=== PATIENT | female | born 1930 | race Hispanic/Latino ===

== ENCOUNTER → 2018-06-19 | Outpatient (CLI) | payer OTHER ==
[~2018-06-19] MED LIST: ASPI-555 PO; BIOT1CAP3 PO; CALC-724 PO; CRAN200C PO; CYCL30DR OP; DONE10TA43 PO; LOSA100T20 PO; MULT-1192 PO; OLOP2.5D OU; OXYB5TAB10 PO; POLY17PO3 PO; RANI300C PO; SIMV20TA6 PO; SITA100T12 PO; TRAV2.5D OU; TURM500C9 PO; VITA1CAP85 PO
== END | disposition home or self-care (01) ==
LOC: RAH 10:40
PROVIDERS: ATTEND Internal Medicine
DX: K57.90 Diverticulosis of intestine, part unspecified, without perforation or abscess without bleeding (principal); N32.89 Other specified disorders of bladder; M47.895 Other spondylosis, thoracolumbar region; I25.10 Atherosclerotic heart disease of native coronary artery without angina pectoris
CPT/HCPCS: 74176

== ENCOUNTER 2019-04-25 19:13 | Inpatient (IN) | payer OTHER, MEDICARE ==
[~2019-04-25] VITALS: Ht 157.5 cm; Wt 43.5 kg
[~2019-04-25 19:13] MED LIST changes: -LOSA100T20 PO; +LOSA100T58 PO; +POLY17PO29 PO; -POLY17PO3 PO
[2019-04-25] MEDS ORDERED: ONDANSETRON HCL 4 MG/2 ML VIAL ONE (19:28)
[2019-04-25 19:44] LABS: BASOPHILS % (AUTO) 0.3 % (0.0-5.0); HEMATOCRIT 42.2 % (36-48); LYMPHOCYTES % (AUTO) 11.4 % (21.0-51.0); MEAN CORPUSCULAR HEMOGLOBIN 30.4 pg (27.0-33.0); MEAN CORPUSCULAR HGB CONC 33.5 g/dL (32.0-36.0); MEAN CORPUSCULAR VOLUME 90.8 fL (79-99); MONOCYTES % (AUTO) 3.4 % (3.0-13.0); NEUTROPHILS % (AUTO) 84.9 % (40.0-77.0); PLATELET COUNT (AUTO) 213 K/uL (130-400); RED BLOOD CELL COUNT(AUTO) 4.65 MIL/uL (4.00-5.50); RED CELL DISTRIBUTION WIDTH 14.2 % (11.0-15.5); WHITE BLOOD COUNT (AUTO) 9.4 K/uL (4.8-10.8)
[2019-04-25] MEDS ORDERED: SODIUM CHLORIDE 0.9% 1000ML 1,000 ML IV ONE ×2 (19:56→23:56)
[2019-04-25 20:00] LABS: CREATININE 0.7 mg/dL (0.5-1.5)
[2019-04-25 20:01] LABS: INR 0.99 (0.85-1.15); PARTIAL THROMBOPLASTIN TIME 27.1 SEC (26.3-35.5); PROTHROMBIN TIME 10.4 SEC (9.6-11.6)
[2019-04-25 20:04] LABS: ALBUMIN 4.4 g/dL (3.5-5.0); BILIRUBIN,TOTAL 0.6 mg/dL (0.2-1.0); TOTAL PROTEIN, SERUM 7.8 g/dL (6.0-8.3)
[2019-04-25 20:08] LABS: BILIRUBIN,URINE Negative (NEGATIVE); COLOR,URINE Yellow (YELLOW); GLUCOSE, URINE (UA) TRACE mg/dL (NEGATIVE); KETONES,URINE 40 mg/dL (NEGATIVE); LEUKOCYTE ESTERASE ,URINE Trace (NEGATIVE); NITRATE,URINE Negative (NEGATIVE); OCCULT BLOOD,URINE Nonhemolyzed Trace (NEGATIVE); PROTEIN,URINE POS 1+ mg/dL (NEGATIVE)
[2019-04-25 20:15] LABS: APPEARANCE,URINE CLOUDY (CLEAR)
[2019-04-25 20:19] LABS: BACTERIA,URINE Moderate /HPF (None Seen); SQUAMOUS EPITHELIAL CELL,UR Rare /HPF (0-2)
[2019-04-25 20:30] LABS: B-TYPE NATRIURETIC PEPTIDE 134 pg/mL (0-100)
[2019-04-25] MEDS ORDERED: NITROGLYCERIN 1GM/1 INCH PACKET TD ONE (21:25)
[2019-04-25] MEDS ORDERED: CEFTRIAXONE SODIUM 1 GM ONE (21:28)
[2019-04-25 22:38] VITALS: BP 142/67
[2019-04-25] MEDS ORDERED: LOSA25TA41 PO (23:01)
[2019-04-25] MEDS ORDERED: LORA10CA9 PO (23:01)
[2019-04-25] MEDS ORDERED: DONE5TAB33 PO (23:01)
[2019-04-26 00:53] LABS: TROPONIN I 3.95 ng/mL (0.00-0.06)
--- NOTE | 2019-04-26 01:02 | NUR ---
PAGED Pagegurinder Jenkins thru answering service re Troponin level 3.95.
--- NOTE | 2019-04-26 03:16 | NUR ---
CALL BACK Dr LAMBERT called back,informed of trponin level,see new order. Addendum: 04/26/19 at 0334 by SELINA ERICKSON RN RN Pt denies chesp pain.
[2019-04-26 03:57] VITALS: BP 130/65
[2019-04-26] MEDS ORDERED: NITROGLYCERIN 1GM/1 INCH PACKET TD ONE (04:32)
[2019-04-26 05:26] LABS: TROPONIN I 4.89 ng/mL (0.00-0.06)
[2019-04-26] MEDS: NITROGLYCERIN 1GM/1 INCH PACKET TD SCH ×4 (06:00→23:43)
[2019-04-26] MEDS ORDERED: GLUCAGON 1MG KIT 1 MG ML IM PRN (06:45)
[2019-04-26] MEDS ORDERED: SODIUM CHLORIDE 0.9% 1000ML 1,000 ML IV SCH (06:45)
[2019-04-26] MEDS ORDERED: DEXTROSE 50%-WATER 50 ML DISP.SYRIN IV PRN (06:45)
[2019-04-26] MEDS: INSULIN R PO SS1 SQ SCH ×4 (06:53→21:00)
[2019-04-26] MEDS ORDERED: ONDANSETRON HCL 4 MG/2 ML VIAL IVP PRN (07:00)
[2019-04-26] MEDS ORDERED: ACETAMINOPHEN 325 MG TAB PO PRN (07:00)
[2019-04-26 08:00] VITALS: BP 134/57
--- NOTE | 2019-04-26 08:05 | NUR ---
paged dr diaz through answering service at this time for the consult. will wait for the callback.
--- NOTE | 2019-04-26 08:07 | NUR ---
spoke to dr. diaz for the consult. no orders given. verbalized that he will be seeing the patient today.
[2019-04-26] MEDS ORDERED: ASPIRIN 81 MG EC TAB PO SCH (09:00)
[2019-04-26] MEDS ORDERED: REGADENOSON 0.4 MG/5 ML PF SYG IVP SCH (09:00)
[2019-04-26 12:09] VITALS: BP 145/58
[2019-04-26] MEDS ORDERED: POTASSIUM CHLORIDE 10% ELIXIR 20 MEQ/15 ML UDCUP PO PRN (12:15)
[2019-04-26] MEDS ORDERED: POTASSIUM CHLORIDE 20MEQ/100ML 100 ML IV PRN ×2 (12:15)
[2019-04-26] MEDS ORDERED: POLYETHYLENE GLYCOL 3350 17 GM POWD.PACK PO SCH (12:15)
[2019-04-26] MEDS ORDERED: LIDOCAINE HCL-MPF 1% 2ML VIAL IJ PRN ×2 (12:15)
--- NOTE | 2019-04-26 13:26 | NUR ---
DCP CM met with pt discussed dc plans. Pt is semi-independent prior to admission, lives at home alone, daughter and friends lives close by. Has a provider and walker. Denies any other equipments/services. Pt feels safe to go back home, daughter able to assist with transportation and needs as necessary. DC plan to home once stable. CM to cont to follow up. Addendum: 04/26/19 at 1328 by PAVEL SALDAÑA LVN CM Amended: Links added.
--- NOTE | 2019-04-26 13:57 | NUR ---
Nutrition Intervention: Nutrition consult due to trigger. Pt. reports 8#(8% of UBW) wt. loss in 1 month due to decreased appetite. Pt. NPO. Spoke with pt. regarding snacks between meals and nut. supplementation with Ensure when diet advanced but pt. declined. Pt. reports dislikes nutritional supplements. Labs reviewed(Alb 4.4). Recommendations: 1) When medically feasible, rec. 60gm CCD diet. 2) Continue to monitor pt's nutritional status and diet advancement. 3) Consult RD as nutrition concerns arise. Addendum: 04/26/19 at [address] Amended: Links added.
[2019-04-26] MEDS ORDERED: SODIUM CHLORIDE 0.9% 500ML 500 ML IV SCH (14:37)
[2019-04-26] MEDS: CEPHALEXIN 500 MG CAPSULE PO SCH ×2 (15:17→21:04)
[2019-04-26 15:41] LABS: INR 1.02 (0.85-1.15); PARTIAL THROMBOPLASTIN TIME 26.4 SEC (26.3-35.5); PROTHROMBIN TIME 10.7 SEC (9.6-11.6)
[2019-04-26] MEDS ORDERED: CLOPIDOGREL BISULFATE 300 MG TAB PO SCH ×2 (15:45→18:40)
[2019-04-26 16:14] VITALS: BP 140/55
[2019-04-26 19:59] VITALS: BP 130/65
[2019-04-26] MEDS ORDERED: DIPHENHYDRAMINE HCL 25 MG CAPSULE PO SCH (20:45)
[2019-04-26] MEDS ORDERED: PREDNISONE 10 MG TABLET PO SCH (21:00)
[2019-04-26] MEDS: METOPROLOL TARTRATE 25 MG TAB PO SCH (21:03)
[2019-04-26] MEDS: SIMVASTATIN 10 MG TABLET PO SCH (21:04)
[2019-04-26 23:51] VITALS: BP 126/50
[2019-04-27] VITALS (15 sets, daily range): BP systolic 120–154; BP diastolic 49–70
[2019-04-27] MEDS: INSULIN R PO SS1 SQ SCH ×4 (05:48→20:45)
[2019-04-27] MEDS ORDERED: DIPHENHYDRAMINE HCL 25 MG CAPSULE PO SCH (06:00)
[2019-04-27 06:11] LABS: BASOPHILS % (AUTO) 0.3 % (0.0-5.0); HEMATOCRIT 33.7 % (36-48); LYMPHOCYTES % (AUTO) 14.3 % (21.0-51.0); MEAN CORPUSCULAR HEMOGLOBIN 30.6 pg (27.0-33.0); MEAN CORPUSCULAR HGB CONC 33.8 g/dL (32.0-36.0); MEAN CORPUSCULAR VOLUME 90.4 fL (79-99); MONOCYTES % (AUTO) 4.5 % (3.0-13.0); NEUTROPHILS % (AUTO) 80.9 % (40.0-77.0); PLATELET COUNT (AUTO) 188 K/uL (130-400); RED BLOOD CELL COUNT(AUTO) 3.72 MIL/uL (4.00-5.50); RED CELL DISTRIBUTION WIDTH 14.7 % (11.0-15.5); WHITE BLOOD COUNT (AUTO) 6.3 K/uL (4.8-10.8)
[2019-04-27 06:20] LABS: CREATININE 0.4 mg/dL (0.5-1.5); POTASSIUM 3.7 mmol/L (3.5-5.1)
[2019-04-27] MEDS: NITROGLYCERIN 1GM/1 INCH PACKET TD SCH ×3 (06:29→18:26)
[2019-04-27] MEDS ORDERED: HYDROCORTISONE SOD SUCCINATE 100 MG/2 ML VIAL IV SCH (06:30)
--- NOTE | 2019-04-27 07:00 | NUR ---
ALERT AND ORIENTED WITH NO ACUTE RESPIRATORY DISTRESS ON ROOM AIR, PATIENT DENIES PAIN WHEN ASKED. PLAN OF CARE WAS MADE KNOWN TO THE PATIENT AND HER DAUGHTER AT THE BEDSIDE. PENDING HEART CATHETERIZATION.
--- NOTE | 2019-04-27 07:08 | NUR ---
DR LARSON CAME IN TO EXPLAIN TO THE PATIENT THE DELAY FOR PROCEDURE THIS MORNING. HE SAID THAT AM MEDS CAN BE GIVEN AND HE WILL NOTIFY WHEN THE PROCEDURE WILL TAKE PLACE.
[2019-04-27] MEDS ORDERED: IOHEXOL 350 MG/ML 100ML INFUS..BTL IV ONE (08:28)
[2019-04-27] MEDS ORDERED: LIDOCAINE HCL 2% 20ML ONE (08:28)
[2019-04-27] MEDS ORDERED: HEPARIN SODIUM 1000UNIT/ML 10ML VIAL ONE (08:28)
[2019-04-27] MEDS ORDERED: IOHEXOL-350 50ML VIAL IV ONE (08:28)
--- NOTE | 2019-04-27 08:45 | NUR ---
TAKEN TO RN PLASTIC SURGERY VIA BED AND IN STABLE CONDITION.
[2019-04-27] MEDS ORDERED: NITROGLYCERIN 5 MG/ML 10 ML VIAL IV ONE (08:56)
[2019-04-27] MEDS ORDERED: ASPIRIN 325MG EC TAB 325 MG TABLET.DR PO SCH (09:00)
--- NOTE | 2019-04-27 09:50 | NUR ---
RETURNED FROM [employer] ALERT AND AWAKE, DENIES PAIN. RIGHT GROIN SITE IS SOFT WITH NOT SIGNS OF BLEEDING OR HEMATOMA PRESENT. PEDAL PULSES ARE STABLE. PATIENT WAS INSTRUCTED ON BEDREST FOR 3 HOURS TO KEEP THE AFFECTED LEG STRAIGHT WITH HOB DOWN AND SHE VOICED UNDERSTANDING. WILL CONTINUE TO MONITOR.
[2019-04-27] MEDS: FAMOTIDINE 20MG TAB 20 MG TAB PO SCH (12:28)
[2019-04-27] MEDS: CEPHALEXIN 500 MG CAPSULE PO SCH ×3 (12:30→20:35)
[2019-04-27] MEDS: METOPROLOL TARTRATE 25 MG TAB PO SCH ×2 (12:31→20:35)
[2019-04-27] MEDS: CLOPIDOGREL BISULFATE 75 MG TAB PO SCH (12:31)
[2019-04-27] MEDS: Losartan Potassium 12.5 MG PO SCH ×2 (12:37→20:36)
--- NOTE | 2019-04-27 13:20 | NUR ---
PATIENT WAS ASSISTED IN A SITTING POSITION FOR LUNCH AND TOLERATED THE ACTIVITY WITHOUT COMPLICATION TO THE RIGHT GROIN. NO BLEEDING OR HEMATOMA OBSERVED AND PEDAL PULSES ARE STABLE.
--- NOTE | 2019-04-27 16:00 | NUR ---
[facility] SD COP[facility]AND CAME TO SEE THE PATIENT. SHE SAID THE PATIENT REFUSED SURGERY FOR NOW AND WANTS MEDICAL MANAGEMENT.
--- NOTE | 2019-04-27 17:22 | NUR ---
[facility] consult Patient assessed as ordered. Small superficial pressure area noted to coccyx area. [facility] recommendations submitted. Addendum: 04/27/19 at 1723 by TERA MCKNIGHT RN/ Amended: Links added.
[2019-04-27] MEDS ORDERED: CEPH500C2 PO (19:44)
[2019-04-27] MEDS ORDERED: ROSU5TAB12 PO (19:44)
[2019-04-27] MEDS: SIMVASTATIN 10 MG TABLET PO SCH (20:35)
[2019-04-27] MEDS ORDERED: TRAVOPROST OU SCH (21:00)
[2019-04-28 03:53] VITALS: BP 111/53
[2019-04-28 05:06] LABS: BASOPHILS % (AUTO) 0.6 % (0.0-5.0); HEMATOCRIT 31.2 % (36-48); LYMPHOCYTES % (AUTO) 30.1 % (21.0-51.0); MEAN CORPUSCULAR HEMOGLOBIN 30.9 pg (27.0-33.0); MEAN CORPUSCULAR HGB CONC 33.9 g/dL (32.0-36.0); MEAN CORPUSCULAR VOLUME 91.2 fL (79-99); MONOCYTES % (AUTO) 10.2 % (3.0-13.0); NEUTROPHILS % (AUTO) 58.1 % (40.0-77.0); NUCLEATED RED BLOOD CELLS 0.1 % (0.0-0.19); PLATELET COUNT (AUTO) 171 K/uL (130-400); RED BLOOD CELL COUNT(AUTO) 3.43 MIL/uL (4.00-5.50); RED CELL DISTRIBUTION WIDTH 14.1 % (11.0-15.5); WHITE BLOOD COUNT (AUTO) 6.8 K/uL (4.8-10.8)
[2019-04-28 05:15] LABS: CREATININE 0.6 mg/dL (0.5-1.5); POTASSIUM 3.2 mmol/L (3.5-5.1)
[2019-04-28] MEDS: INSULIN R PO SS1 SQ SCH (06:11)
[2019-04-28] MEDS ORDERED: CLOP75TA14 PO (06:40)
[2019-04-28] MEDS ORDERED: METO25 PO (06:40)
[2019-04-28] MEDS ORDERED: Isosorbide Mono 30MG Tab Sr PO (06:40)
--- NOTE | 2019-04-28 06:55 | NUR ---
RECEIVED ALERT AND STABLE WITH NO ACUTE DISTRESS ON ROOM AIR, RIGHT GROIN SITE IS SOFT WITH NO HEMATOMA AND PEDAL PULSES ARE STRONG. PATIENT WAS ENCOURAGED TO AMBULATE PRIOR TO DISCHARGE AND DAUGHTER AT THE BEDSIDE SAID THAT SHE WILL WALK HER AFTER BREAKFAST. POTASSIUM COVERAGE WILL BE PROVIDED.
[2019-04-28 07:30] VITALS: BP 121/47
[2019-04-28] MEDS ORDERED: ASPIRIN 81 MG EC TAB PO SCH (09:00)
[2019-04-28] MEDS: Losartan Potassium 12.5 MG PO SCH (09:00)
[2019-04-28] MEDS ORDERED: ISOSORBIDE MONO 30MG TAB SR PO SCH (09:00)
[2019-04-28] MEDS ORDERED: MAGNESIUM HYDROXIDE 30 ML/UDCUP PO SCH (09:15)
[2019-04-28] MEDS: CEPHALEXIN 500 MG CAPSULE PO SCH (09:22)
[2019-04-28] MEDS: CLOPIDOGREL BISULFATE 75 MG TAB PO SCH (09:22)
[2019-04-28] MEDS: METOPROLOL TARTRATE 25 MG TAB PO SCH (09:23)
[2019-04-28] MEDS: FAMOTIDINE 20MG TAB 20 MG TAB PO SCH (09:23)
[2019-04-28] MEDS: POTASSIUM CHLORIDE 20 MEQ ERTAB PO PRN ×2 (09:25→11:08)
[2019-04-28] MEDS ORDERED: NITR0.3T11 SL (09:36)
--- NOTE | 2019-04-28 12:55 | NUR ---
D/C INSTRUCTIONS PROVIDED TO PATIENT'S DAUGHTER AT THE BEDSIDE AND F/U APPOINTMENT WAS MADE AND GIVEN TO HER WITH PRESCRIPTION WITH RETURNED UNDERSTANDING. IV ACCESS WAS REMOVED WITHOUT COMPLICATION AND THE PATIENT LEFT THE UNIT IN STABLE CONDITION VIA W/C.
== END 2019-04-28 12:45 | disposition home or self-care (01) | DRG 281 ==
LOC: EDH 19:13 → EDHIP 21:38 → OBSVTOIN 21:38 → 3DH 22:31
PROVIDERS: ADMIT Internal Medicine; ATTEND Internal Medicine
PROC: 4A023N7 Measurement of Cardiac Sampling and Pressure, Left Heart, Percutaneous Approach (ICD-10-PCS; principal; 2019-04-27)
PROC: B2111ZZ Fluoroscopy of Multiple Coronary Arteries using Low Osmolar Contrast (ICD-10-PCS; 2019-04-27)
PROC: B2151ZZ Fluoroscopy of Left Heart using Low Osmolar Contrast (ICD-10-PCS; 2019-04-27)
DX: I21.4 Non-ST elevation (NSTEMI) myocardial infarction (principal); N39.0 Urinary tract infection, site not specified; F01.51 Vascular dementia, unspecified severity, with behavioral disturbance; F02.81 Dementia in other diseases classified elsewhere, unspecified severity, with behavioral disturbance; E86.0 Dehydration; I34.1 Nonrheumatic mitral (valve) prolapse; B96.20 Unspecified Escherichia coli [E. coli] as the cause of diseases classified elsewhere; E11.42 Type 2 diabetes mellitus with diabetic polyneuropathy; E78.1 Pure hyperglyceridemia; E78.5 Hyperlipidemia, unspecified; H25.9 Unspecified age-related cataract; H40.9 Unspecified glaucoma; H43.819 Vitreous degeneration, unspecified eye; I10 Essential (primary) hypertension; I25.10 Atherosclerotic heart disease of native coronary artery without angina pectoris; I70.0 Atherosclerosis of aorta; J30.9 Allergic rhinitis, unspecified; J84.10 Pulmonary fibrosis, unspecified; K21.9 Gastro-esophageal reflux disease without esophagitis; K31.84 Gastroparesis; K57.90 Diverticulosis of intestine, part unspecified, without perforation or abscess without bleeding; K58.1 Irritable bowel syndrome with constipation; K63.5 Polyp of colon; K64.9 Unspecified hemorrhoids; M19.90 Unspecified osteoarthritis, unspecified site; M48.061 Spinal stenosis, lumbar region without neurogenic claudication; M51.9 Unspecified thoracic, thoracolumbar and lumbosacral intervertebral disc disorder; R32 Unspecified urinary incontinence; Z79.02 Long term (current) use of antithrombotics/antiplatelets; Z79.82 Long term (current) use of aspirin; Z79.899 Other long term (current) drug therapy; Z87.440 Personal history of urinary (tract) infections; Z86.010 Personal history of colon polyps; Z83.3 Family history of diabetes mellitus; Z82.5 Family history of asthma and other chronic lower respiratory diseases; Z82.49 Family history of ischemic heart disease and other diseases of the circulatory system; Z82.0 Family history of epilepsy and other diseases of the nervous system; Z80.8 Family history of malignant neoplasm of other organs or systems
CPT/HCPCS: 36415; 71045; 80048; 80053; 81001; 82150; 82550; 82948; 83690; 83874; 83880; 84484; 85025; 85610; 85730; 87077; 87088; 87186; 87804; 93005; 93306; 93458; 99291; C1760; C1894; G0378; J0696; J1644; J1720; J2405; J3490; J7030; J7040; J7512; Q0163; Q9967

== ENCOUNTER → 2019-05-21 | Outpatient (CLI) | payer OTHER, MEDICARE ==
[~2019-05-21] MED LIST changes: -BIOT1CAP3 PO; +CEPH500C2 PO; +CLOP75TA14 PO; -DONE10TA43 PO; +DONE5TAB33 PO; +Isosorbide Mono 30MG Tab Sr PO; +LORA10CA9 PO; -LOSA100T58 PO; +LOSA25TA41 PO; +METO25 PO; +NITR0.3T11 SL; +ROSU5TAB12 PO; -SIMV20TA6 PO; -SITA100T12 PO
== END | disposition home or self-care (01) ==
LOC: RAH 11:43
PROVIDERS: ATTEND Internal Medicine
DX: M81.0 Age-related osteoporosis without current pathological fracture (principal); M79.641 Pain in right hand
CPT/HCPCS: 73120